=== PATIENT | male | born 1995 | race Caucasian/White ===

== ENCOUNTER 2024-03-10 10:49 | Day surgery (SDC) | payer OTHER ==
[2024-03-10] MEDS: ACETAMINOPHEN 500 MG TABLET (FP) PO ONE (11:35)
[2024-03-10 11:56] VITALS: BP 147/83; PULSE 72; RESP 18; TEMP 98.5
[2024-03-10] MEDS: VEDOLIZUMAB 300 MG in SODIUM CHLORIDE 250 ML IVPB ONE (12:46)
== END 2024-03-10 13:44 | disposition home or self-care (01) ==
LOC: FINFUSION 10:49 → FM/S 10:53 → FINFUSION 13:44
PROVIDERS: ATTEND Internal Medicine Gastroenterology
PROC: 3E0330M Introduction of Antineoplastic, Monoclonal Antibody, into Peripheral Vein, Percutaneous Approach (ICD-10-PCS; principal; 2024-03-10)
DX: K50.90 Crohn's disease, unspecified, without complications (principal)
CPT/HCPCS: 96365; J3380